=== PATIENT | male | born 1980 | race Caucasian/White ===

== ENCOUNTER 2022-10-27 14:09 | Emergency (ER) | payer OTHER ==
[~2022-10-27] VITALS: Ht 172.7 cm; Wt 70.8 kg
== END 2022-10-27 17:19 | disposition home or self-care (01) ==
LOC: ED 14:09
PROC: 0XQLXZZ Repair Right Thumb, External Approach (ICD-10-PCS; principal; 2022-10-27)
DX: S67.01XA Crushing injury of right thumb, initial encounter (principal); Z23 Encounter for immunization; W22.8XXA Striking against or struck by other objects, initial encounter; Y99.0 Civilian activity done for income or pay
CPT/HCPCS: 12001; 90471; 90715; 99282